=== PATIENT | female | born 1950 | race Caucasian/White ===

== ENCOUNTER → 2019-04-16 | Outpatient (CLI) | payer MEDICARE, OTHER ==
--- NOTE | 2019-04-16 10:42 | RAD ---
INDICATION: Osteoporosis screening. Postmenopausal follow-up COMPARISON: 02/17/2013 TECHNIQUE: Bone densitometry was performed through the lumbar spine and right proximal femurs. FINDINGS: Lumbar Spine: L1-4 BMD: 1.1 T-Score: -0.7 Increased by 2% from baseline Femoral Neck: BMD: 801 T-Score: -1.3 Decreased by 3% from baseline IMPRESSION: 1. Lumbar spine falls within the normal range. 2. Right femoral neck falls within the osteopenic range. Electronically signed by: Jw Rdz MD (04/16/2019 10:39 AM) [place] [id number]
== END | disposition home or self-care (01) ==
LOC: DXRAD 09:47
PROVIDERS: ATTEND Family Medicine
DX: Z13.820 Encounter for screening for osteoporosis (principal); Z78.0 Asymptomatic menopausal state
CPT/HCPCS: 77080

== ENCOUNTER → 2021-05-18 | Outpatient (CLI) | payer MEDICARE, OTHER ==
--- NOTE | 2021-05-18 15:38 | RAD ---
INDICATION: Screening for osteopenia/osteoporosis. Postmenopausal evaluation. COMPARISON: 04/16/2019 TECHNIQUE: Bone densitometry was performed through the lumbar spine and proximal femur. IMPRESSION: Lumbar Spine: BMD: 1.1 T-Score: -0.5 Range: Normal. Increased by 4 percent from baseline in 2009 Proximal Femur: BMD: 0.78 T-Score: -1.4 Range: Osteopenic. Decreased by 6 percent from 2010. World Health Organization Criteria for Bone Density: T-Score: > -1.0: Normal Range < -1.0 to -2.5: Osteopenic Range < -2.5: Osteoporotic Range Electronically signed by: Jw Rdz MD (05/18/2021 3:36 PM) [id number]
== END ==
LOC: DXRAD 10:18
PROVIDERS: ATTEND Internal Medicine Rheumatology
DX: M85.88 Other specified disorders of bone density and structure, other site (principal); M81.8 Other osteoporosis without current pathological fracture
CPT/HCPCS: 77080